=== PATIENT | male | born 1960 | race Caucasian/White ===

== ENCOUNTER 2019-08-17 07:01 | Day surgery (SDC) | payer OTHER ==
[~2019-08-17] VITALS: Ht 185.4 cm; Wt 106.8 kg
[2019-08-17 07:48] LABS: ANION GAP 14.3 mmol/L (8-16); CALCIUM 9.5 mg/dL (8.5-10.1); CARBON DIOXIDE 25.4 mmol/L (21.0-32.0); INR 0.96 (0.85-1.17); POTASSIUM - SERUM 4.7 mmol/L (3.5-5.1); PROTIME 12.7 SECONDS (11.6-15.0)
[2019-08-17 08:40] LABS: BASOPHILS 0.4 % (0-2); EOSINOPHILS 2.3 % (0-7); HEMATOCRIT 35.8 % (42.0-54.0); HEMOGLOBIN 12.4 g/dL (13.5-17.5); IMMATURE GRANULOCYTES 0.4 % (0-5); LYMPHOCYTES 22.8 % (15-50); MCH 32.7 pg (26.0-34.0); MCHC 34.6 g/dL (31.0-37.0); MCV 94.5 fL (80.0-100.0); MEAN PLATELET VOLUME 9.6 fL (7.4-10.4); MONOCYTES 10.4 % (2-11); NEUTROPHILS 63.7 % (40-80); PLATELET COUNT 160 10x3/uL (130-400); RBC 3.79 10x6/uL (4.20-6.10); RDW 11.7 % (11.5-14.5); WBC 5.7 10x3/uL (4.8-10.8)
[2019-08-17 08:51] VITALS: BP 114/81; BMI 31.0
[2019-08-17 09:02] VITALS: BP 114/81; BMI 31.0
[2019-08-17] MEDS ORDERED: BENICAR40 MG PO (09:08)
[2019-08-17] MEDS ORDERED: GLYBURIDE5 M1 PO (09:10)
[2019-08-17] MEDS ORDERED: [UNRECOGNIZED DRUG - OTHER] PO (09:14)
[2019-08-17] MEDS ORDERED: PRORENAL PO (09:14)
[2019-08-17] MEDS ORDERED: FISH OIL OMEGA PO (09:16)
[2019-08-17] MEDS ORDERED: TUMERIC PO (09:18)
[2019-08-17] MEDS ORDERED: HYDROCODON-ACE1 EAC7 PO (16:27)
[2019-08-17 16:40] VITALS: Ht 185.4 cm; Wt 106.8 kg
--- NOTE | 2019-08-17 18:10 | NUR ---
DISCHARGE INSTRUCTIONS REVIEWED WITH PATIENT AND SPOUSE, DISCHARGED HOME VIA WHEELCHAIR TO PRIVATE VEHICLE WITH SPOUSE
--- NOTE | 2019-08-18 10:47 | OP ---
PATIENT NAME: CLAUDIA NIELSEN JR MEDICAL RECORD: [id number] :56 LOCATION:[facility] ADMISSION DATE: SURGEON: ANETTE BLANCO MD DATE OF OPERATION: 08/17/2019 REFERRED BY: Derrell Horne MD PREOPERATIVE DIAGNOSIS: Stage V chronic kidney disease due to diabetes and hypertension, most likely. POSTOPERATIVE DIAGNOSIS: Stage V chronic kidney disease due to diabetes and hypertension, most likely. OPERATION PERFORMED: Laparoscopic implantation of peritoneal dialysis catheter. SURGEON: Anette Blanco MD ANESTHESIA: General endotracheal per FACILITY REHAB DIRECTOR. PREOPERATIVE NOTE: Mr. Nielsen is a 59-year-old white male patient with worsening renal failure, who Dr. Horne feels needs to begin dialysis quite soon and the patient is to have a peritoneal dialysis catheter placed today. He has plans to do home peritoneal dialysis. He lives near [place], [place], and it will be much more convenient for him to the home peritoneal dialysis rather than traveling to the dialysis center. The patient's primary care physician is Dr. Laquita Jerome. Dr. Horne contacted me yesterday morning and asked if I could get Mr. Nielsen in to have his catheter implanted and we made arrangements for him to come to the hospital this morning and have the operation today. DESCRIPTION OF PROCEDURE: Under general endotracheal anesthesia, the patient was placed in supine position and prepped and draped in a sterile manner. The patient voided before induction of anesthesia and it was thought that we did not need a Feliciano catheter. I made a small incision in the left upper quadrant of the abdomen and inserted a 0-degree 5-mm laparoscope and a 5-mm XL Optiview port without the need of a Veress needle and pneumoperitoneum was established with carbon dioxide. The telescope was exchanged for a 30-degree scope and the abdomen examined. There were no adhesions of any consequence. There was really minimal omentum and none in the pelvis. There were no hernias seen. The patient had been marked preoperatively by I believe Rebeca Rodriguez RN in [place] and I subsequently found that those markings were just right. I measured on the abdominal wall with an adult standard dual-cuff coil Merit Flex-Neck catheter and I agreed completely with the location identified for optimum placement of the deep cuff. A vertical incision was then made to the left of the midline and just below the level of the umbilicus and the anterior rectus sheath exposed. A pursestring suture of 0 Vicryl was placed on the rectus sheath and infiltrated with 0.25% Marcaine with epinephrine to help assure adequate hemostasis. An introducer was then inserted through the pursestring and obliquely down through the rectus muscle before penetrating the peritoneum. This created a very nice oblique tunnel, which is intended to help keep the dialysis catheter directed downward into the pelvis. The catheter was inserted through the introducer. The Dacron felt cuff was placed within the rectus sheath and the pursestring suture tied. The catheter was then placed in OPERATIVE REPORT [id number] CLAUDIA NIELSEN JR a shallow subcutaneous tunnel corresponding fairly closely to the markings already present on the abdomen. The catheter was attached to a transverse set and then 1 liter of saline was run rapidly into the abdominal cavity and the bag then placed on the floor to siphon fluid back. We had return of the entire liter of saline very quickly. I consider this a successful placement. The carbon dioxide used for abdominal insufflation had been allowed to escape before filling the abdomen with saline soak. There was no pressure from that to push the fluid back out. The catheter was then heparin locked, clamped and capped and the incision infiltrated further with Marcaine and then irrigated with saline and closed with minimum of interrupted inverted 3-0 Vicryl and then running intracuticular 4-0 Stratafix and Dermabond glue. The incision then was dressed with Maxorb Ag, Tegaderm, and Cavilon skin prep. The 5-mm port was removed in that site after infiltration with Marcaine was closed with a single interrupted inverted 3-0 Vicryl and then Dermabond glue. It also was dressed with Maxorb Ag, Tegaderm, and Cavilon skin prep. The catheter was dressed with a chlorhexidine Biopatch at the exit site and then coiled and covered with a 4 x 4 bordered gauze dressing. At this point, then the patient was awakened from his anesthetic and taken to the recovery room. Blood loss during the operation was insignificant and unreplaced. Sponges, instruments, and needles were accounted for. No drain was used and no surgical specimen was submitted for histopathology. PLAN: The patient should be able to go home this evening. I will give a prescription for a minimum number of [place] 5/325 tablets to take one every 4 hours p.r.n. for pain. He will be seeing the dialysis nurses on Friday for flushing of the catheter. I do not think I need to see him back in my office other than p.r.n. The dialysis nurses can simply remove the dressing on the left upper quadrant stab incision Friday or any day following week. He can call me of course or come to see me if needed or if there are any problems. He is given my card with my office telephone number and my personal cell telephone number in case he needs it. Blood loss during the procedure was insignificant and unreplaced. All sponges, instruments and needles were accounted for. No drain was used and no surgical specimen submitted for histopathology. TRANSINT:[id number] Voice Confirmation ID: [id number] DOCUMENT ID: [id number] cc: [facility] Rebeca Rodriguez RN [phone] Dr. Laquita Jerome [phone] ANETTE BLANCO MD at 1047 CC: REBECA RODRIGUEZ RN, DR. LAQUITA JEROME and DERRELL HORNE [phone] DICTATION DATE: 08/17/19 1659 DIRECTOR OF PROVIDER RELATIONS: 08/18/19 0229 [facility] 08/17/19 [place] [id number] [place] [id number]
== END 2019-08-17 18:10 | disposition home or self-care (01) ==
LOC: D.OPS 07:01
PROVIDERS: Surgery; ATTEND Internal Medicine Nephrology
DX: E11.22 Type 2 diabetes mellitus with diabetic chronic kidney disease (principal); I12.0 Hypertensive chronic kidney disease with stage 5 chronic kidney disease or end stage renal disease; N18.5 Chronic kidney disease, stage 5; E78.2 Mixed hyperlipidemia; Z79.84 Long term (current) use of oral hypoglycemic drugs; D64.9 Anemia, unspecified; R80.9 Proteinuria, unspecified; N25.0 Renal osteodystrophy; R80.2 Orthostatic proteinuria, unspecified

== ENCOUNTER → 2019-10-07 09:56 | Outpatient (CLI) | payer OTHER ==
[2019-08-17 16:40] VITALS: BMI 31.0
--- NOTE | ~2019-10-07 | HEMODYNAMI ---
PATIENT:CLAUDIA JOSEPH JR MEDICAL RECORD: [id number] : 56 [id number] AD[facility]ION DATE: 10/07/19 Generatedon:10/07/201911:47 Patient name: CLAUDIA JOSEPH Patient #: [id number] SSN: : 1960 Date of study: 10/07/2019 Page: Of Hemodynamic Procedure Report Patient Data Patient Demographics Procedure consent was obtained First Name: CLAUDIA Gender: Male Last Name: OPAL Suffix: [facility] Initial: NORMAN : 1960 Patient #: [id number] Age: 59 year(s) Race: Unknown Additional ID: [id number] Contact details [address]: [address] [place] [address] State: [place] City: [place] Zip code: [address] Admission Admission Data Admission Date: 10/07/2019 Admission Time: 9:56 Procedure Procedure Types Cath Procedure Peripheral Cath Diagnostic Procedure Miscellaneous Peritoneogram Procedure Description Procedure Date Procedure Date: 10/07/2019 Procedure Start Time: 11:40 Procedure End Time: 11:47 Procedure Staff Name Function Ok Sorto MD Performing Physician LENA VILLALBA RT Monitor David Mccormick RT Scrub Sepideh Hemphill RN Nurse Ashley MAYO RN Nurse Procedure Data Cath Procedure Fluoroscopy Diagnostic fluoroscopy Total fluoroscopy Time: 1.8 time: 1.8 min min Diagnostic fluoroscopy Total fluoroscopy dose: 54 dose: 54 mGy mGy Contrast Material Contrast Material Type Amount (ml) Isovue 300 15 Hemodynamics Rest Pre Cath Intra NCS Post Cath Procedure Log Time Note 11:14:58 Use device set IR Diagnostic 11:14:59 Bag Decanter (2001S) opened to sterile field. 11:15:00 Sterile Angiographic Pack opened to sterile field. 11:15:01 Tegaderm 4 x 4 (1626W) opened to sterile field. 11:17:40 David Mccormick RT (R) (CV) sent for patient. Start room use. 11:17:41 Time tracking: Regular hours (M-F 7:00 - 5:00) 11:17:48 Patient received from Other to IR Alert and oriented. Tansferred to table in Supine position. 11:17:51 Signed procedure consent form obtained from patient. 11:17:52 Warm blankets applied, and rossy hugger turned on for patient comfort. 11:17:53 Correct patient and procedure confirmed by team. 11:18:01 Pre-procedure instructions explained to patient. 11:21:54 Is the patient allergic to Iodine/contrast media? No. 11:21:57 Patient diabetic? Yes. 11:21:58 If diabetic: On Metformin? No 11:22:04 - 11:22:07 Alarms reviewed by Santos Dukes 11::08 Sharps counted by scrub and verified by Kate 11:22:25 Left abdomen area was prepped with chlora-prep and draped in sterile fashion 11::29 - 11:37:48 Physician arrived 11:37:53 --------ALL STOP TIME OUT------ 11:37:54 Final Timeout: patient, procedure, and site verified with staff and physician. All members of the team are in agreement. 11:38:07 Left abdomen site verified by team. 11:40:04 Procedure started. 11:40:04 Full Disclosure recording started 11:42:30 GLIDE WIRE ANGLE 180cm ([id number]) opened to sterile field. 11:45:41 Procedure ended.(Physican Out) 11:46:04 Fluoroscopy time 01.80 minutes. 11:46:09 Fluoroscopy dose: 54 mGy 11:46:09 Flurop Dose total: 54 11:46:13 Contrast amount:Isovue 300 15ml. 11:46:15 Sharps counted by scrub and verified by R.N. 11:46:29 Post-op/insertion site Left Abdominal area dressed using a 4 x 4 and Tegaderm. 11:46:32 Procedure and supply charges have been captured, reviewed, submitted an d are correct. 11:47:29 Procedure ended. 11:47:29 Full Disclosure recording stopped Device Usage Item Name Manufacture Quantity Catalog Hospital Part Current Minimal Lot# / Number Charge Number Stock Stock Serial# Code Bag Decanter Microtek 1 [id number] 5 () [employer] Sterile Cardinal 1 [id number] 5 Angiographic Health Pack Tegaderm 4 x 3M 1 [id number] [id number] 5 4 (1626W) GLIDE WIRE Terumo 1 [id number] 199384 [id number] 5 ANGLE 180cm ([id number]) GLIDE WIRE Terumo 1 [id number] 5 .035 180CM STRAIGHT ([id number]) Signature Audit [place] Stage Time Signature Unsigned Intra-Procedure 10/07/2019 LENA VILLALBA RT 11:47:55 AM (R) [facility] [address] [place] [address]
[~2019-10-07 09:56] MED LIST: BENICAR40 MG PO; FISH OIL OMEGA PO; GLYBURIDE5 M1 PO; HYDROCODON-ACE1 EAC7 PO; PRORENAL PO; TUMERIC PO; [UNRECOGNIZED DRUG - OTHER] PO
== END | disposition home or self-care (01) ==
LOC: D.RAD 09:56
PROVIDERS: ATTEND Surgery
DX: N18.6 End stage renal disease (principal); T85.691A Other mechanical complication of intraperitoneal dialysis catheter, initial encounter; Z99.2 Dependence on renal dialysis

== ENCOUNTER 2019-10-12 07:12 | Day surgery (SDC) | payer OTHER ==
[~2019-10-12] VITALS: Ht 185.4 cm; Wt 106.6 kg
[2019-10-12 07:35] LABS: HEMATOCRIT 33.3 % (42.0-54.0); HEMOGLOBIN 11.4 g/dL (13.5-17.5); MCH 31.6 pg (26.0-34.0); MCHC 34.2 g/dL (31.0-37.0); MCV 92.2 fL (80.0-100.0); MEAN PLATELET VOLUME 8.6 fL (7.4-10.4); PLATELET COUNT 171 10x3/uL (130-400); RBC 3.61 10x6/uL (4.20-6.10); RDW 12.1 % (11.5-14.5); WBC 5.9 10x3/uL (4.8-10.8)
[2019-10-12 07:41] LABS: INR 0.91 (0.85-1.17); PROTIME 12.2 SECONDS (11.6-15.0)
[2019-10-12 07:42] LABS: ANION GAP 9.7 mmol/L (8-16); CALCIUM 9.8 mg/dL (8.5-10.1); CARBON DIOXIDE 31.8 mmol/L (21.0-32.0); CREATININE - SERUM 4.8 mg/dL (0.6-1.3); POTASSIUM - SERUM 3.5 mmol/L (3.5-5.1)
[2019-10-12 08:34] LABS: EOSINOPHILS 2 % (0-7); LYMPHOCYTES 38 % (15-50); MONOCYTES 7 % (2-11); NEUTROPHILS 53 % (40-80); PLATELET ESTIMATE NORMAL; PLATELET MORPHOLOGY NORMAL PLT MORPH
[2019-10-12 08:55] VITALS: BP 103/58; Ht 185.4 cm; Wt 106.6 kg
[2019-10-12] MEDS ORDERED: HYDROCODON-ACE1 EAC7 PO (13:00)
--- NOTE | 2019-10-12 15:20 | NUR ---
PATIENT AMBULATES TO BATHROOM AND VOIDS LARGE AMOUNT IN TOIET WITHOUT DIFFICULTY. AMBULATES WITHOUT UNSTEADINESS OR DIZZINESS. LEFT AC PIV DC'D WITH TIP INTACT. PATIENT DRESSING IN PERSONAL CLOTHING WITH SPOUSE'S ASSISTANCE
--- NOTE | 2019-10-13 10:35 | OP ---
PATIENT NAME: CLAUDIA NIELSEN JR MEDICAL RECORD: [id number] :56 LOCATION:[facility] ADMISSION DATE: SURGEON: ANETTE BLANCO MD DATE OF OPERATION: 10/12/2019 REFERRED BY: Derrell Horne MD PREOPERATIVE DIAGNOSES: 1. End-stage renal disease and dependence on dialysis. 2. Mechanical complication of peritoneal dialysis catheter. POSTOPERATIVE DIAGNOSES: 1. End-stage renal disease and dependence on dialysis. 2. Mechanical complication of peritoneal dialysis catheter. OPERATION PERFORMED: Laparoscopic implantation of new peritoneal dialysis catheter and removal of old, followed by ultrasound and fluoroscopic-guided insertion of a right internal jugular 19-cm HemoSplit tunneled dialysis catheter. SURGEON: Anette Blanco MD ANESTHESIA: General endotracheal per SEMICONDUCTOR PACKAGES SEALER. PREOPERATIVE NOTE: Mr. Nielsen is a 59-year-old white male patient from near [place]. He is a patient of Dr. Horne. He has end-stage renal disease and does not have a long-term hemodialysis access or short term, he has initiated dialysis and continues to dialyze with a peritoneal dialysis catheter, which was laparoscopically placed. It functions well other than not draining adequately when the patient is in recumbent position. He has tried laxatives and even completed a MiraLax colonoscopy prep without any improvement in the dialysis function and peritoneogram cathetergram reveal normal positioning without any evidence of a wrap or complication. In order to try to correct this problem, he was brought to the operating room for laparoscopic revision of his peritoneal dialysis catheter. DESCRIPTION OF PROCEDURE: Under general endotracheal anesthesia, the patient was prepped and draped in a sterile manner. A small incision was made in the right upper quadrant and right upper quadrant 5-mm diameter XL Optiview type port with a 0-degree 5-mm laparoscope was inserted. A pneumoperitoneum was established with carbon dioxide and we changed to a 30-degree angle telescope. I found the catheter to be in perfect position apparently, though I eventually determined that the catheter was actually at least an inch too short that did not distend deep into the pelvis. There were no adhesions. Catheter was otherwise in the midline and I had nothing else to account for the catheter's poor function. I elected to go ahead and remove that catheter and place a new one. The paramedian incision was reopened and the catheter exposed and the deeper Dacron felt cuff was dissected from within the rectus muscle and the intraperitoneal portion of the catheter was withdrawn. The subcutaneous cuff was exposed through another incision and that cuff was subsequently sent for culture. The wounds were all irrigated with Ancef/gentamicin solution and eventually infiltrated with 0.25% Marcaine. I extended the paramedian incision towards the pubis for about an inch and then placed a pursestring suture of 0 Vicryl in the anterior rectus sheath and then inserted a brand new Oobafit classic Flex-Neck adult standard dual cuff coil dialysis catheter through an oblique OPERATIVE REPORT [id number] CLAUDIA NIELSEN JR intrarectus preperitoneal tunnel down towards the pelvis. The deep cuff was buried in the rectus muscle and the pursestring suture tied. The catheter was then placed in a subcutaneous tunnel, which angled to the left but was about an inch and a half beneath the previous tunnel catheter tract. The catheter exited through the skin at approximately the site, which had been determined preoperatively to be optimal. The catheter was flushed and flushed easily with saline. It was then connected to a bag of 1000 mL of saline which was allowed to run into the abdomen, which did so very quickly. The laparoscopic insufflation was stopped and allowed to escape and the bag was then placed on the floor to siphon the intra-abdominal fluid, which did quite nicely; about 800 cc was drained effortlessly with the patient in slight Trendelenburg position. Examination of the catheter positioning of the laparoscopic insufflation was gradually resumed, demonstrated much deeper placement into the pelvis. I saw there was no omentum. There was no need for an omentopexy, and subsequently, the instrumentation was removed and the puncture sites infiltrated with Marcaine. Skin was closed with interrupted inverted 3-0 Vicryl and Dermabond glue and dressed with Maxorb Ag, Tegaderm, and Cavilon skin prep. The fascia at the initial catheter excision site was closed with interrupted [id number] 0 Vicryl and the paramedian incision subcutaneous tissues approximated with interrupted 3-0 Vicryl and then a running intracuticular 4-0 Stratafix. A chlorhexidine BioPatch was placed on the catheter at the new exit site. Bactroban ointment was applied to the old exit site. The other incisions were sealed with Dermabond glue and dressed with Maxorb AG and Tegaderm with Cavilon skin prep. I do not think the patient should try to resume peritoneal dialysis if possible for about 2 weeks and during that time, he will need to have hemodialysis if he needs dialysis, so I opted to go ahead and place a dialysis catheter. It will be up to Dr. Horne whether he needs to use this catheter for hemodialysis or not. The patient was totally reprepped and redraped and the right internal jugular vein was located with a Duplex Ultrasound. The vein was of normal caliber and fully compressible and totally sonographically normal. A small incision was made at the base of the neck and a micropuncture needle and guidewire were inserted into the internal jugular vein with real time ultrasound guidance. Images were documented on hard paper printout and placed in the patient's chart for permanent documentation. A guidewire catheter exchange was performed and dilators were then passed under fluoroscopy and lastly a dilator peel-away introducer was inserted. I chose a 19-cm HemoSplit and this was inserted through a small incision beneath the clavicle and pulled through a subcutaneous tunnel up to the cervical incision where it was then inserted through the peel-away sheath and the peel-away sheath removed. The catheter came to rest in a good position with its tips in the right atrium and without any kinking or other complication apparent. Both lumens were accessed and aspirated, free return of blood from both were confirmed. They were both then flushed with saline and then heparin lock solution, clamped and capped. The catheter was sutured to the adjacent skin with 2-0 Prolene and the exit site dressed with chlorhexidine Biopatch and CVL transparent plastic bandage and Cavilon skin prep. The cervical incision was sealed with Dermabond glue and dressed with Maxorb Ag, Tegaderm, and Cavilon OPERATIVE REPORT [id number] CLAUDIA NIELSEN JR skin prep. The patient was then awakened and taken to the recovery room. Blood loss during the operation was about 5 cc; un-replaced. Sponges, instruments, and needles were accounted for and no drain was used. One surgical specimen, peritoneal dialysis catheter subcutaneous cuff was sent for culture. The patient should have the new catheter flushed probably this week on or Friday if not this coming Friday. I will notify Dr. Horne of the patient's status with regard to peritoneal dialysis and dialysis access, so if he wishes he can initiate hemodialysis this week or next. TRANSINT:[id number] Voice Confirmation ID: [id number] DOCUMENT ID: [id number] cc: Kierra Ray RN, [facility] ANETTE BLANCO MD at 1035 CC: DERRELL HORNE [phone] DICTATION DATE: 10/12/19 1426 BOX LOADER: 10/12/19 2231 [facility] 10/12/19 [place] [id number]
== END 2019-10-12 15:45 | disposition home or self-care (01) ==
LOC: D.OPS 07:12
PROVIDERS: Surgery; ATTEND Internal Medicine Nephrology
DX: E11.22 Type 2 diabetes mellitus with diabetic chronic kidney disease (principal); N18.6 End stage renal disease; T85.691A Other mechanical complication of intraperitoneal dialysis catheter, initial encounter; Z99.2 Dependence on renal dialysis; Z79.84 Long term (current) use of oral hypoglycemic drugs